=== PATIENT | male | born 1995 | race Caucasian/White ===

== ENCOUNTER 2016-11-17 19:02 | Emergency (ER) | payer BC ==
[~2016-11-17] VITALS: Ht 175.3 cm; Wt 80.0 kg
[2016-11-17 19:05] VITALS: BP 118/67; TEMP 36.8; O2SAT 99; Ht 175.3 cm; Wt 80.0 kg
[2016-11-17 19:27] VITALS: PULSE 100
[2016-11-17] MEDS ORDERED: LEVE750T PO (19:33)
--- NOTE | 2016-11-17 20:39 | EMERGENCY ROOM VISIT NOTE ---
History First contact with patient: 19:11 Chief Complaint: SEIZURE Stated Complaint: SEIZURE Nursing Triage Summary: Patient arrived via EMS. EMS reports patient was out at [facility] with friends and had a granmal siezure in the bathroom lasting 30 seconds. Friends kept patient safe during seizure and called EMS. Patient has history of epilepsy diagnosed in august of this year and takes 750mg of keppra BID. Patients last siezure was 3-4 weeks ago and lasted roughly 30 seconds. History of Present Illness The patient is a 21 year old male who presents to the Emergency Room with complaints of a seizure. The patient reports a history of epilepsy which was diagnosed earlier this summer. He states that he was eating at a restaurant with his friends when he began to feel like the room was spinning. He states that he has had symptoms like this prior to seizures in the past and he got up to go to the bathroom. His friends went with him and they reported that he had a tonic-clonic seizure lasting approximately 30 seconds. The patient did not hit his head. He was confused afterwards, but now is alert and has no complaints. He states that he is taking Keppra 750 mg twice daily. He follows with a neurologist at home. He states that since being diagnosed with epilepsy , he has had seizures every 3-4 weeks. He reports this was a very minor seizure for him. There is nothing different from his previous seizures. He does admit to occasional marijuana use and occasional alcohol use. He denies any other drug use. He denies missing any medications. He denies headache, neck pain, numbness, weakness, blurred vision, slurred speech or confusion at this time. He denies any recent illness. Review of Systems A complete 10 point review of systems was reviewed with the patient with pertinent positives and negatives as per history of present illness. All else were negative. Past Medical/Surgical History Epilepsy Social History Smoking Status: Never Smoker Alcohol Use: occasionally Drug Use: marijuana Marital Status: single Housing Status: lives with roommate Occupation Status: [employer] student Current/Historical Medications Scheduled Levetiracetam (Keppra), 750 MG PO BID Physical Exam Vital Signs Date Time Temp Pulse Resp B/P (MAP) Pulse Ox O2 Delivery O2 Flow Rate FiO2 11/17/16 19:27 100 11/17/16 19:05 36.8 105 18 118/67 99 Room Air 11/17/16 19:05 99 Room Air Physical Exam VITALS: Vitals are noted on the nurse's note and reviewed by myself. Vital signs stable. GENERAL: This is a 21-year-old male, in no acute distress, nondiaphoretic, well- developed well-nourished. SKIN: The skin was without rashes, erythema, edema, or bruising. HEAD: Normocephalic atraumatic. EARS: External auditory canals clear, tympanic membranes pearly larson without erythema or effusion bilaterally. EYES: Pupils equal round and reactive to light and accommodation. Conjunctivae without injection, sclerae without icterus. Extraocular movements intact. MOUTH: Mucous membranes moist. NECK: Supple without nuchal rigidity. No tenderness of the cervical spine. HEART: Regular rate and rhythm without murmurs gallops or rubs. LUNGS: Clear to auscultation bilaterally without wheezes, rales or rhonchi. MUSCULOSKELETAL: Full range of motion throughout. Strength 5/5 throughout. NEURO: Patient was alert and oriented to person place and time. Normal sensation to light and sharp touch. Deep tendon reflexes 2+ throughout. No focal neurological deficits. Medical Decision & Procedures Medical Decision Differential diagnosis includes breakthrough seizure, medication noncompliance, hypoglycemia, drug use, drug withdrawal, electrolyte imbalance, infection, among others. The patient was evaluated as above. He is well-appearing and has no complaints at this time. He reports this seizure was very typical for him and there are no new/concerning symptoms. His neurological exam is completely within normal limits. There are no deficits. There is no evidence of infection on exam. This seizure appears to be consistent with the patient's previous pattern of seizures. I do not feel that an extensive workup is necessary at this time. The patient was monitored for one hour with no concerning symptoms and no recurrent seizures. He will be discharged home to follow-up with his neurologist tomorrow. He was encouraged to return here if he has any concerning symptoms or any recurrence of his seizures. He verbalized understanding of my assessment and treatment plan and was discharged home in good condition. The patient's case was reviewed with Dr. Barker, ED attending physician, who agreed with my assessment and treatment plan. Medication Reconcilliation Current Medication List: was personally reviewed by me Blood Pressure Screening Patient's blood pressure: Normal blood pressure Impression Primary Impression: Seizure disorder Departure Information Dispostion Home / Self-Care Condition GOOD Referrals No Doctor, Assigned (PCP) Patient Instructions My [facility] Additional Instructions Take your medications as prescribed. Rest and drink plenty of fluids. Call your neurologist tomorrow to see if they would like to adjust any medications. Return here for any recurrent seizures, numbness, weakness or any other new/ concerning symptoms.
== END 2016-11-17 20:50 | disposition home or self-care (01) ==
LOC: EDBD 19:02 → C.EDA 19:04
DX: G40.909 Epilepsy, unspecified, not intractable, without status epilepticus (principal); Z79.899 Other long term (current) drug therapy

== ENCOUNTER 2017-10-28 22:13 | Emergency (ER) | payer BC ==
[~2017-10-28 22:13] MED LIST: LEVE750T PO
[2017-10-28] MEDS ORDERED: SODIUM CHLORIDE 0.9% 1000ML 1,000 ML IV STA (22:18)
[2017-10-28 22:25] VITALS: TEMP 36.4
--- NOTE | 2017-10-28 22:34 | EMERGENCY ROOM VISIT NOTE ---
History Report prepared by Glenda: Guy Logan Under the Supervision of: Dr. Link Navarro M.D. First contact with patient: 22:15 Stated Complaint: SEIZURE W/FACIAL INJURIES History of Present Illness The patient is a 22 year old male who presents to the Emergency Room via the EMS after suffering from a seizure episode 1 hour prior to arrival. When the EMS showed up at the scene the patient was lying in a pool of his own blood after falling face first and hitting his head causing him to lose consciousness. EMS stated he has blood and vomit in his airway that they needed to suction out. They administered 2mg of Ativan IV but it did not break the seizure so they gave another 2mg of Ativan IV and that did break the seizure. Since second dose of Ativan, the patient has not sees. EMS states the patient is more alert and awake since he got to the emergency department. The patient reports that he has recently changed his seizure medication to 150mg Vimpat and this was the first time he took the new medication alone without his old medication, Oxcarbazepine. He admits he was drinking alcohol tonight but denies illicit drug use. Source of History: EMS Onset: Just prior to arrival Position: head Quality: other (Seizure) Timing: other (Episodic) Associated Symptoms: + LOC, + neck pain, + vomiting Review of Systems See HPI for pertinent positives and negatives. A total of ten systems were reviewed and were otherwise negative. Family History Patient reports no known family medical history. Social History Smoking Status: Never Smoker Alcohol Use: occasionally Drug Use: marijuana Marital Status: single Housing Status: lives with roommate Occupation Status: [employer] student Current/Historical Medications Scheduled Lacosamide (Vimpat), 150 MG PO DAILY Scheduled PRN Lorazepam (Ativan), 1 MG PO HS PRN for Sleep Allergies Coded Allergies: No Known Allergies (Unverified , 10/28/17) Physical Exam Vital Signs Date Time Temp Pulse Resp B/P (MAP) Pulse Ox O2 Delivery O2 Flow Rate FiO2 10/28/17 23:30 95 17 119/61 93 Room Air 10/28/17 23:12 103 17 96/75 95 Room Air 10/28/17 22:27 131 10/28/17 22:25 36.4 109 18 126/65 95 Nasal Cannula 2.0 Physical Exam Physical Exam HENT: Exam performed. Head: Normocephalic. Right Ear: External ear normal. No mastoid tenderness. Left Ear: External ear normal. No mastoid tenderness. Mouth/Throat: Fracture of the right front tooth #11. Mild Chele is exposed , no blood from the tooth. Torres type II fracture of tooth #11 EYES: Conjunctivae and EOM are normal. Pupils are equal, round, and reactive to light. Right eye exhibits no discharge. Left eye exhibits no discharge. No scleral icterus. NECK: Neck was held in place with C-collar CV: Tachycardic rate, regular rhythm, normal heart sounds and intact distal pulses. There is no peripheral edema. Palpable radial pulses bue. PULM/CHEST: Effort normal and breath sounds normal. No respiratory distress. No stridor. He has no wheezes. He has no rales. Chest Wall: He exhibits no tenderness. No crepitus ABD: The abdomen is soft. Bowel sounds are normal. He has no distension. No mass is present. There is no tenderness. There is no rebound, no guarding, no Christie's sign and no tenderness at McBurney's point. Rovsig negative. MUSC/SKEL: Normal range of motion. There is no peripheral edema, tenderness or deformity. Pelvis is stable. LYMPH: No cervical adenopathy. NEURO: He is alert and oriented to person, place, and time. He has normal strength. No cranial nerve deficit or sensory deficit. Coordination and gait normal. GCS eye subscore is 4. GCS verbal subscore is 5. GCS motor subscore is 6. Cerebellar tests wnl. SKIN: Skin is warm and dry. He is not diaphoretic. PSYCH: He has a normal mood and affect. Behavior is normal. Judgment and thought content normal. Medical Decision & Procedures ER Provider Diagnostic Interpretation: Radiology results as stated below per my review and radiologist interpretation: PELVIS 1 OR 2 VIEW ROUTINE CLINICAL HISTORY: Trauma, seizure, intoxication. COMPARISON STUDY: No previous studies for comparison. FINDINGS: No fractures or dislocations are visualized. There is no SI joint diastases. There is no symphysis diastases. IMPRESSION: No fractures identified. Electronically signed by: Dave Rodriguez M.D. 10/28/2017 10:41 PM Dictated Date/Time: 10/28/2017 10:[address] FACIAL BONES-MXILLOFAC WITHOUT CT DOSE: CLINICAL HISTORY: Head and facial trauma. Pain. Intoxication. Seizure. COMPARISON STUDY: No previous studies for comparison. TECHNIQUE: Helical images were acquired in the transverse plane. The study was reviewed and analyzed on the independent 3-D workstation. A dose lowering technique was utilized adhering to the principles of ALARA. The pterygoid plates appear intact. The zygomatic arches appear intact. The globes appear intact. There is no evidence of orbital emphysema. The orbital gillette and floor appear intact. The mandibular condyles appear intact. There is ethmoid sinus mucosal thickening. 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 IMPRESSION: No facial fractures identified. Electronically signed by: Dave Rodriguez M.D. 10/28/2017 10:52 PM Dictated Date/Time: 10/28/2017 10:[address] HEAD WITHOUT CONTRAST (CT) CLINICAL HISTORY: Head trauma. Seizure. Intoxication. COMPARISON STUDY: No previous studies for comparison. TECHNIQUE: Axial CT of the brain is performed from the vertex to the skull base. IV contrast was not administered for this examination. A dose lowering technique was utilized adhering to the principles of ALARA. CT DOSE: FINDINGS: No intra or extra-axial mass lesions are visualized. There is no CT evidence of acute cortical infarction. There is no evidence of midline shift. There is no acute hemorrhage. No calvarial fractures are visualized. There is no evidence of pathologic ventricular dilatation. There is mild ethmoid mucosal thickening. IMPRESSION: No acute intracranial findings Electronically signed by: Dave Rodriguez M.D. 10/28/2017 10:46 PM Dictated Date/Time: 10/28/2017 10:45 PM CHEST ONE VIEW PORTABLE CLINICAL HISTORY: Trauma. Seizure. Intoxication. COMPARISON STUDY: No previous studies for comparison. FINDINGS: The heart is the upper limits of normal in size given the AP supine technique. Slight prominence of the superior mediastinum, is also likely secondary to the supine technique. There is no focal pulmonary consolidation there are no pleural effusions. There is no failure. No pneumothorax is visualized in the supine study. IMPRESSION: Portal supine study. No acute findings. Electronically signed by: Dave Rodriguez M.D. 10/28/2017 10:40 PM Dictated Date/Time: 10/28/2017 10:[address] OF THE CERVICAL SPINE CLINICAL HISTORY: Neck pain status post trauma. Intoxication. COMPARISON STUDY: No previous studies for comparison. CT DOSE: 1602.41 mGy.cm TECHNIQUE: CT scan of the cervical spine was performed from the skull base to the thoracic inlet. Images are reviewed in the axial, sagittal, and coronal planes. IV contrast was not administered for this examination. A dose lowering technique was utilized adhering to the principles of ALARA. FINDINGS: The visualized portions of the lung apices reveal no evidence of pneumothorax. The prevertebral soft tissues are normal. No fractures or subluxations are visualized. There are multilevel degenerative changes IMPRESSION: No evidence of acute fracture or traumatic subluxation. Electronically signed by: Dave Rodriguez M.D. 10/28/2017 10:49 PM Dictated Date/Time: 10/28/2017 10:47 PM Laboratory Results 10/28/17 22:26 Red Blood Count 5.40, Mean Corpuscular Volume 84.8, Mean Corpuscular Hemoglobin 29.4, Mean Corpuscular Hemoglobin Concent 34.7, Mean Platelet Volume 9.8, Neutrophils (%) (Auto) 56.2, Lymphocytes (%) (Auto) 34.5, Monocytes (%) (Auto) 7.5, Eosinophils (%) (Auto) 0.6, Basophils (%) (Auto) 0.4, Neutrophils # (Auto) 5.39, Lymphocytes # (Auto) 3.31, Monocytes # (Auto) 0.72, Eosinophils # (Auto) 0.06, Basophils # (Auto) 0.04 10/28/17 22:26 Test 10/28/17 22:19 10/28/17 22:26 Bedside Glucose 90 mg/dl (70-99) White Blood Count 9.60 K/uL (4.8-10.8) Red Blood Count 5.40 M/uL (4.7-6.1) Hemoglobin 15.9 g/dL (14.0-18.0) Hematocrit 45.8 % (42-52) Mean Corpuscular Volume 84.8 fL (80-100) Mean Corpuscular Hemoglobin 29.4 pg (25-34) Mean Corpuscular Hemoglobin Concent 34.7 g/dl (32-36) Platelet Count 322 K/uL (130-400) Mean Platelet Volume 9.8 fL (7.4-10.4) Neutrophils (%) (Auto) 56.2 % Lymphocytes (%) (Auto) 34.5 % Monocytes (%) (Auto) 7.5 % Eosinophils (%) (Auto) 0.6 % Basophils (%) (Auto) 0.4 % Neutrophils # (Auto) 5.39 K/uL (1.4-6.5) Lymphocytes # (Auto) 3.31 K/uL (1.2-3.4) Monocytes # (Auto) 0.72 K/uL (0.11-0.59) Eosinophils # (Auto) 0.06 K/uL (0-0.5) Basophils # (Auto) 0.04 K/uL (0-0.2) RDW Standard Deviation 38.0 fL (36.4-46.3) RDW Coefficient of Variation 12.6 % (11.5-14.5) Immature Granulocyte % (Auto) 0.8 % Immature Granulocyte # (Auto) 0.08 K/uL (0.00-0.02) Prothrombin Time 10.7 SECONDS (9.0-12.0) Prothromb Time International Ratio 1.0 (0.9-1.1) Activated Partial Thromboplast Time 23.4 SECONDS (21.0-31.0) Partial Thromboplastin Ratio 0.9 Anion Gap 22.0 mmol/L (3-11) Estimated GFR () 73.1 Estimated GFR (Non- 63.1 BUN/Creatinine Ratio 8.9 (10-20) Calcium Level 9.2 mg/dl (8.5-10.1) Ethyl Alcohol mg/dL < 3.0 mg/dl (0-3) Laboratory results reviewed by me Medications Administered Medications (Trade) Dose Ordered Sig/Madhuri Route Start Time Stop Time Status Last Admin Dose Admin Sodium Chloride 1,000 ml @ 999 mls/hr Q1H1M STAT IV 10/28/17 22:18 10/28/17 23:18 DC 10/28/17 22:18 999 MLS/HR Ondansetron HCl (Zofran Inj) 4 mg NOW STAT IV 10/28/17 23:17 10/28/17 23:18 DC 10/28/17 23:17 4 MG Procedure 2230: Bedside FAST exam performed with ultrasound. Views were obtained in the hepatorenal subxyphoid splenorenal and suprapubic windows. No free fluid in the abdomen. No pericardial tamponade. ED Course 2215: The patient was evaluated in room A1. A complete history and physical exam was performed. 2218: Sodium Chloride 1000ml @ 999mls/hr IV 2305: Imaging within normal limits. Labs within normal limits with the exception of mildly elevated creatinine 1.55, this thought to be due to the patient being dehydrated from vomiting and drinking alcohol tonight. I did discuss these findings with the patient and his parents friends at bedside. They confirmed that the patient had multiple shots of alcohol and some beer tonight spread over the night. The patient states that he did recently switch to using Vimpat only to control his seizures, he was on oxycarbamazepine prior to being on the Vimpat. He said for the last few days he was taking oxcyarbazamepine as well as Vimpat in the process of transitioning to Vimpat however tonight was the first night he took Vimpat alone and no oxycarbamazepine .I spoke with the patient's parents upon the patient's request at and updated them on the lab and imaging findings. The patient is currently A&O x3. His frat brothers are at bedside and confirm he consumed multiple shots and a few beers this evening. I discussed this with the family and they are aware of the drinking. The parents confirm he recently switched his seizure medication and agreed that the patient's alcohol consumption could have triggered the seizure. Both the patient and the parents are going to follow up with the patient's neurologist at [employer]. I spoke with the patient about cutting down his alcohol use and he agreed to try. The patient's frat brothers will take him home. 2317: Zofran 4mg IV 2334: Vital signs stable. The patient is tolerating PO. 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 He promises he wont drink anymore alcohol. He states he will follow up with his neurologist at [employer] as well as [facility] for his chipped tooth. DISCHARGE - Plan of care discussed with patient and questions answered. The patient was given both verbal and printed discharge instructions. The patient verbalized understanding and ability to comply. The patient is to seek outpatient follow up as noted in the discharge instructions. The patient verbalized understanding and ability to comply. The patient is discharged in stable condition. The patient was instructed to return for worsening symptoms. Medical Decision 2215: The patient was evaluated in room A1. A complete history and physical exam was performed. 2218: Sodium Chloride 1000ml @ 999mls/hr IV 2305: Imaging within normal limits. Labs within normal limits with the exception of mildly elevated creatinine 1.55, this thought to be due to the patient being dehydrated from vomiting and drinking alcohol tonight. I did discuss these findings with the patient and his parents friends at bedside. They confirmed that the patient had multiple shots of alcohol and some beer tonight spread over the night. The patient states that he did recently switch to using Vimpat only to control his seizures, he was on oxycarbamazepine prior to being on the Vimpat. He said for the last few days he was taking oxcyarbazamepine as well as Vimpat in the process of transitioning to Vimpat however tonight was the first night he took Vimpat alone and no oxycarbamazepine .I spoke with the patient's parents upon the patient's request at and updated them on the lab and imaging findings. The patient is currently A&O x3. His frat brothers are at bedside and confirm he consumed multiple shots and a few beers this evening. I discussed this with the family and they are aware of the drinking. The parents confirm he recently switched his seizure medication and agreed that the patient's alcohol consumption could have triggered the seizure. Both the patient and the parents are going to follow up with the patient's neurologist at [employer]. I spoke with the patient about cutting down his alcohol use and he agreed to try. The patient's frat brothers will take him home. 2317: Zofran 4mg IV 2334: Vital signs stable. The patient is tolerating PO. 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 He promises he wont drink anymore alcohol. He states he will follow up with his neurologist at [employer] as well as [facility] for his chipped tooth. DISCHARGE - Plan of care discussed with patient and questions answered. The patient was given both verbal and printed discharge instructions. The patient verbalized understanding and ability to comply. The patient is to seek outpatient follow up as noted in the discharge instructions. The patient verbalized understanding and ability to comply. The patient is discharged in stable condition. The patient was instructed to return for worsening symptoms. Blood Pressure Screening Patient's blood pressure: Elevated blood pressure Blood pressure disposition: Elevated BP felt to be situational Impression Primary Impression: Seizure Additional Impressions: Alcohol abuse Closed head injury Tooth fracture Scribe Attestation The scribe's documentation has been prepared under my direction and personally reviewed by me in its entirety. I confirm that the note above accurately reflects all work, treatment, procedures, and medical decision making performed by me. The chart was completed utilizing [employer] Speech voice recognition software. Grammatical errors, random word insertions, pronoun errors, and incomplete sentences are an occasional consequence of this system due to software limitations, ambient noise, and hardware issues. Any formal questions or concerns about the content, text, or information contained within the body of this dictation should be directly addressed to the physician for clarification. Departure Information Dispostion Home / Self-Care Referrals No Doctor, Assigned (PCP) Forms HOME CARE DOCUMENTATION FORM, IMPORTANT VISIT INFORMATION Patient Instructions Alcohol Abuse - [facility], ED Head Injury Closed Sleep Mon, ED Seizure Recurrent, My [facility] Additional Instructions Return to the emergency department if you redevelop seizure, headache, changes in her vision, or extreme pain. Follow-up with your neurologist at 10 about the dosage on your Vimpat in your antiseizure medication. Avoid drinking alcohol while taking medications for seizures. Problem Qualifiers Additional Impressions: Tooth fracture Encounter type: initial encounter Fracture type: closed Qualified Codes: S02.5XXA - Fracture of tooth (traumatic), initial encounter for closed fracture
[2017-10-28 22:36] LABS: BASO % 0.4 %; BASO ABS # 0.04 K/uL (0-0.2); EOS % 0.6 %; EOS ABS # 0.06 K/uL (0-0.5); HEMATOCRIT 45.8 % (42-52); HEMOGLOBIN 15.9 g/dL (14.0-18.0); IG# 0.08 K/uL (0.00-0.02); LYMPH % 34.5 %; LYMPH ABS # 3.31 K/uL (1.2-3.4); MEAN CELL VOLUME 84.8 fL (80-100); MEAN CORPUSCULAR HEMOGLOBIN 29.4 pg (25-34); MEAN CORPUSCULAR HGB CONC 34.7 g/dl (32-36); MEAN PLATELET VOLUME 9.8 fL (7.4-10.4); MONO % 7.5 %; MONO ABS # 0.72 K/uL (0.11-0.59); NEUT % 56.2 %; NEUT ABS # 5.39 K/uL (1.4-6.5); PLATELET COUNT 322 K/uL (130-400); RED CELL DISTRIBUTION WIDTH CV 12.6 % (11.5-14.5)
--- NOTE | 2017-10-28 22:42 | DIAGNOSTIC IMAGING REPORT ---
PELVIS 1 OR 2 VIEW ROUTINE CLINICAL HISTORY: Trauma, seizure, intoxication. COMPARISON STUDY: No previous studies for comparison. FINDINGS: No fractures or dislocations are visualized. There is no SI joint diastases. There is no symphysis diastases. IMPRESSION: No fractures identified. Electronically signed by: Dave Rodriguez M.D. 10/28/2017 10:41 PM Dictated Date/Time: 10/28/2017 10:40 PM
--- NOTE | 2017-10-28 22:42 | DIAGNOSTIC IMAGING REPORT ---
CHEST ONE VIEW PORTABLE CLINICAL HISTORY: Trauma. Seizure. Intoxication. COMPARISON STUDY: No previous studies for comparison. FINDINGS: The heart is the upper limits of normal in size given the AP supine technique. Slight prominence of the superior mediastinum, is also likely secondary to the supine technique. There is no focal pulmonary consolidation there are no pleural effusions. There is no failure. No pneumothorax is visualized in the supine study. IMPRESSION: Portal supine study. No acute findings. Electronically signed by: Dave Rodriguez M.D. 10/28/2017 10:40 PM Dictated Date/Time: 10/28/2017 10:39 PM
[2017-10-28 22:48] LABS: PTT PATIENT 23.4 SECONDS (21.0-31.0)
--- NOTE | 2017-10-28 22:48 | DIAGNOSTIC IMAGING REPORT ---
CT HEAD WITHOUT CONTRAST (CT) CLINICAL HISTORY: Head trauma. Seizure. Intoxication. COMPARISON STUDY: No previous studies for comparison. TECHNIQUE: Axial CT of the brain is performed from the vertex to the skull base. IV contrast was not administered for this examination. A dose lowering technique was utilized adhering to the principles of ALARA. CT DOSE: FINDINGS: No intra or extra-axial mass lesions are visualized. There is no CT evidence of acute cortical infarction. There is no evidence of midline shift. There is no acute hemorrhage. No calvarial fractures are visualized. There is no evidence of pathologic ventricular dilatation. There is mild ethmoid mucosal thickening. IMPRESSION: No acute intracranial findings Electronically signed by: Dave Rodriguez M.D. 10/28/2017 10:46 PM Dictated Date/Time: 10/28/2017 10:45 PM
--- NOTE | 2017-10-28 22:50 | DIAGNOSTIC IMAGING REPORT ---
CT OF THE CERVICAL SPINE CLINICAL HISTORY: Neck pain status post trauma. Intoxication. COMPARISON STUDY: No previous studies for comparison. CT DOSE: 1602.41 mGy.cm TECHNIQUE: CT scan of the cervical spine was performed from the skull base to the thoracic inlet. Images are reviewed in the axial, sagittal, and coronal planes. IV contrast was not administered for this examination. A dose lowering technique was utilized adhering to the principles of ALARA. FINDINGS: The visualized portions of the lung apices reveal no evidence of pneumothorax. The prevertebral soft tissues are normal. No fractures or subluxations are visualized. There are multilevel degenerative changes IMPRESSION: No evidence of acute fracture or traumatic subluxation. Electronically signed by: Dave Rodriguez M.D. 10/28/2017 10:49 PM Dictated Date/Time: 10/28/2017 10:47 PM
[2017-10-28 22:53] LABS: BLOOD UREA NITROGEN 14 mg/dl (7-18); CALCIUM 9.2 mg/dl (8.5-10.1); CARBON DIOXIDE 15 mmol/L (21-32); CREATININE 1.55 mg/dl (0.60-1.40); GLUCOSE 89 mg/dl (70-99); POTASSIUM 3.7 mmol/L (3.5-5.1); SODIUM 141 mmol/L (136-145)
--- NOTE | 2017-10-28 22:53 | DIAGNOSTIC IMAGING REPORT ---
CT FACIAL BONES-MXILLOFAC WITHOUT CT DOSE: CLINICAL HISTORY: Head and facial trauma. Pain. Intoxication. Seizure. COMPARISON STUDY: No previous studies for comparison. TECHNIQUE: Helical images were acquired in the transverse plane. The study was reviewed and analyzed on the independent 3-D workstation. A dose lowering technique was utilized adhering to the principles of ALARA. The pterygoid plates appear intact. The zygomatic arches appear intact. The globes appear intact. There is no evidence of orbital emphysema. The orbital gillette and floor appear intact. The mandibular condyles appear intact. There is ethmoid sinus mucosal thickening. 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 IMPRESSION: No facial fractures identified. Electronically signed by: Dave Rodriguez M.D. 10/28/2017 10:52 PM Dictated Date/Time: 10/28/2017 10:49 PM
[2017-10-28] MEDS ORDERED: ONDANSETRON INJ 2 MG/ML 2 ML VIAL IV STA (23:17)
[2017-10-28] MEDS ORDERED: LACO150T PO (23:20)
[2017-10-28] MEDS ORDERED: ATV/1 PO (23:21)
[2017-10-28 23:30] VITALS: BP 119/61; PULSE 95; O2SAT 93
== END 2017-10-28 23:51 | disposition home or self-care (01) ==
LOC: EDBD 22:13 → C.EDA 22:14
DX: G40.909 Epilepsy, unspecified, not intractable, without status epilepticus (principal); F10.10 Alcohol abuse, uncomplicated; S09.90XA Unspecified injury of head, initial encounter; S02.5XXA Fracture of tooth (traumatic), initial encounter for closed fracture; M54.2 Cervicalgia; R11.10 Vomiting, unspecified; Z79.899 Other long term (current) drug therapy; X58.XXXA Exposure to other specified factors, initial encounter